=== PATIENT | female | born 1980 | race Caucasian/White ===

== ENCOUNTER 2018-08-25 17:52 | Emergency (ER) | payer BC, OTHER ==
--- NOTE | 2018-08-25 18:30 | Emergency Department Record ---
History of Present Illness - General Chief Complaint: Chest Pain Stated Complaint: CHEST PAIN Time Seen by Provider: 08/25/18 18:24 Source: Patient Mode of Arrival: Wheelchair - History of Present Illness Initial Comments: chest pain at 3:30 pm today and it was epigastric pain and moved into her chest she took tums and pepcid and given 325 mg of aspirin at urgent [facility] and sent to our ED. Currently pain is mostly gone. She was diaphorectic and pain is located under her breast. Father had an [place] in his 40's. Onset/Timin -: Hour(s) Onset: During rest Pain Location: Substernal Pain Radiation: Back Severity scale (1-10): 5 Quality: Aching, Tightness Consistency: Constant Improves With: Nothing Worsens With: Nothing Anginal Symptoms: Nausea Treatments Prior to Arrival: Aspirin - Related Data Home Medications Medication Instructions Recorded Confirmed Last Taken Calcium Carbonate/Vitamin D3 1 tab PO DAILY 08/25/18 08/25/18 Unknown [Calcium 600-Vit D3 400 Tablet] Lactobacillus Combination No.4 1 each PO DAILY 08/25/18 08/25/18 Unknown [Probiotic] Irdnjqto07/Iron Fum/FA/Om3/Dha 1 tab PO DAILY 08/25/18 08/25/18 Unknown [ Plus-Dha Combo Pack] Previous Rx's Medication Instructions Recorded Omeprazole [Prilosec] 20 mg PO DAILY #30 08/25/18 Allergies Allergy/AdvReac Type Severity Reaction Status Date / Time No Known Drug Allergies Allergy Verified 08/25/18 18:02 Travel Screening - Travel/Exposure Within Last 30 Days Have you traveled within the last 30 days?: No Review of Systems Reviewed: No additional complaints except as noted below Constitutional: Reports: As per HPI. Denies: Chills, Fever, Malaise, Night sweats, Weakness, Weight change Eyes: Reports: As per HPI. Denies: Eye discharge, Eye pain, Photophobia, Vision change ENT: Reports: As per HPI. Denies: Congestion, Dental pain, Ear pain, Epistaxis , Hearing loss, Throat pain Respiratory: Reports: As per HPI. Denies: Cough, Dyspnea, Hemoptysis, Stridor, Wheezes Cardiovascular: Reports: As per HPI, Chest pain (reproducible chest pain with palpation of the chest anteriorly and under her breast). Denies: Arrhythmia, Dyspnea on exertion, Edema, Murmurs, Orthopnea, Palpitations, Paroxysmal nocturnal dyspnea, Rheumatic Fever, Syncope Endocrine: Reports: As per HPI. Denies: Fatigue, Heat or cold intolerance, Polydipsia, Polyuria Gastrointestinal: Reports: As per HPI. Denies: Abdominal pain, Constipation, Diarrhea, Hematemesis, Hematochezia, Melena, Nausea, Vomiting Genitourinary: Reports: As per HPI. Denies: Abnormal menses, Discharge, Dyspareunia, Dysuria, Frequency, Hematuria, Incontinence, Retention, Urgency Musculoskeletal: Reports: As per HPI. Denies: Arthralgia, Back pain, Gout, Joint swelling, Myalgia, Neck pain Skin: Reports: As per HPI. Denies: Bruising, Change in color, Change in hair/ nails, Lesions, Pruritus, Rash Neurological: Reports: As per HPI. Denies: Abnormal gait, Confusion, Headache, Numbness, Paresthesias, Seizure, Tingling, Tremors, Vertigo, Weakness Psychiatric: Reports: As per HPI. Denies: Anxiety, Auditory hallucinations, Depression, Homicidal thoughts, Suicidal thoughts, Visual hallucinations Hematological/Lymphatic: Reports: As per HPI. Denies: Anemia, Blood Clots, Easy bleeding, Easy bruising, Swollen glands Past Medical History - SOCIAL HISTORY Smoking Status: Never smoker Alcohol Use: Rare Drug Use: None - RESPIRATORY Hx Respiratory Disorders: Yes Hx Asthma: Yes - CARDIOVASCULAR Hx Cardio Disorders: No - NEURO Hx Neuro Disorders: Yes Hx Headaches: Yes - GI Hx GI Disorders: Yes Hx Reflux: Yes - Hx Genitourinary Disorders: No - ENDOCRINE Hx Endocrine Disorders: Yes Hx Thyroid Disease: Yes - MUSCULOSKELETAL Hx Musculoskeletal Disorders: No - PSYCH Hx Psych Problems: Yes Hx Anxiety: Yes Hx Depression: Yes - HEMATOLOGY/ONCOLOGY Hx Hematology/Oncology Disorders: No Family Medical History Any Significant Family History?: Yes Hx Heart Disease: Father *Heart Comment: heart attack x3 Physical Exam - General General Appearance: Alert, Oriented x3, Cooperative, No acute distress - Head Head exam: Normal inspection - Eye Eye exam: Normal appearance, PERRL Pupils: Normal accommodation - ENT ENT exam: Normal exam, Mucous membranes moist, Normal external ear exam, Normal orophraynx, TM's normal bilaterally Ear exam: Normal external inspection. negative: External canal tenderness Nasal Exam: Normal inspection. negative: Discharge, Sinus tenderness Mouth exam: Normal external inspection, Tongue normal Teeth exam: Normal inspection. negative: Dental caries Throat exam: Normal inspection. negative: Tonsillar erythema, Tonsillar exudate - Neck Neck exam: Normal inspection, Full ROM. negative: Tenderness - Respiratory Respiratory exam: Normal lung sounds bilaterally. negative: Respiratory distress - Cardiovascular Cardiovascular Exam: Regular rate, Normal rhythm, Normal heart sounds - GI/Abdominal GI/Abdominal exam: Soft, Normal bowel sounds, Tenderness (epigastric and under ribs and reproducible with palpation) - Rectal Rectal exam: Deferred - exam: Deferred - Extremities Extremities exam: Normal inspection, Full ROM, Normal capillary refill. negative: Tenderness - Back Back exam: Reports: Normal inspection, Full ROM. Denies: Muscle spasm, Rash noted, Tenderness - Neurological Neurological exam: Alert, Normal gait, Oriented X3, Reflexes normal - Psychiatric Psychiatric exam: Normal affect, Normal mood - Skin Skin exam: Dry, Intact, Normal color, Warm Course - Reevaluation(s) Reevaluation #1: mylanta help her pain 08/25/18 19:24 Reevaluation #2: patient has an appointment to see her Dr tomorrow so I told her to have her Dr order an US to see if she has gall stones we don't have US at night 08/25/18 19:58 Medical Decision Making - Data Complexity MDM Data: Labs Ordered and/or Reviewed (trop T negative, liver enzymes elevated) , X-Ray Ordered and/or Reviewed (chest xray neg ) - Lab Data Result diagrams: 08/25/18 18:10 08/25/18 18:10 Disposition Clinical Impression: Biliary colic, Elevated liver enzymes Gastritis Qualifiers: Gastritis type: unspecified gastritis Chronicity: acute Gastritis bleeding: without bleeding Qualified Code(s): K29.00 - Acute gastritis without bleeding Disposition: Home, Self-Care Condition: (1) Good Instructions: Gastritis (ED) Additional Instructions: follow up with family Dr in 1 day she has an appointment tomorrow with the family Dr. return to Ed if worse mylanta 30 ml after meals and bedtime Prescriptions: Omeprazole [Prilosec] 20 mg PO DAILY #30 cap.dr Forms: Patient Portal Access Time of Disposition: 19:28 Quality - Quality Measures Quality Measures: N/A - Blood Pressure Screening Does Patient Have Any of the Following: No Blood Pressure Classification: Pre-Hypertensive BP Reading Systolic Measurement: 132 Diastolic Measurement: 75 Screening for High Blood Pressure: < Pre-Hypertensive BP, F/U Documented > [ G8950] Pre-Hypertensive Follow-up Interventions: Referral to alternative/primary care provider. (d)
[2018-08-25] MEDS ORDERED: AL HYDROX/MAG HYDROX 30ML UD PO ONE (18:36)
[2018-08-25 18:43] LABS: HEMOGLOBIN 12.5 gm/dl (11.6-16.0); MEAN CELL VOLUME 94.4 fl (81-97); MEAN CORPUSCULAR HEMOGLOBIN 31.9 pg (27-33); MEAN CORPUSCULAR HGB CONC 33.8 g/dl (32-36); MEAN PLATELET VOLUME 9.7 fl (7.4-10.4); PLATELET COUNT 306 K/uL (130-400); RED BLOOD COUNT 3.92 M/uL (3.80-5.40); RED CELL DISTRIBUTION WIDTH 13.4 % (11.5-14.5); WHITE BLOOD COUNT W/O DIFF 12.2 K/uL (4.2-12.2)
[2018-08-25 19:00] LABS: BLOOD UREA NITROGEN 11 mg/dL (6-20); CREATININE 0.5 mg/dL (0.5-0.9); EST GLOMERULAR FILTRATION RATE > 60 mL/min
[2018-08-25 19:03] LABS: GLUCOSE,RANDOM 118 mg/dL (74-109)
[2018-08-25 19:25] LABS: BILIRUBIN,TOTAL 0.7 mg/dL (0.2-1.0)
[2018-08-25 19:26] LABS: TOTAL PROTEIN 7.7 g/dL (6.6-8.7)
[2018-08-25 19:31] LABS: ALBUMIN 4.2 g/dL (4.0-5.0); BILIRUBIN,DIRECT 0.3 mg/dL (0-0.3)
[2018-08-25] MEDS ORDERED: HYDROCODONE/APAP 5/325MG TABLET PO ONE (19:59)
== END 2018-08-25 20:19 | disposition home or self-care (01) ==
LOC: ER 17:52
DX: K80.50 Calculus of bile duct without cholangitis or cholecystitis without obstruction (principal); K29.00 Acute gastritis without bleeding; R94.5 Abnormal results of liver function studies; R11.0 Nausea
CPT/HCPCS: 71046; 80048; 80076; 83690; 84484; 85027; 85730; 93005; 93010; 99284

== ENCOUNTER 2019-03-25 08:52 | Emergency (ER) | payer OTHER ==
--- NOTE | 2019-03-25 09:22 | Emergency Department Record ---
Anxiety - General Chief Complaint: Anxiety Stated Complaint: ANXIETY Time Seen by Provider: 03/25/19 09:00 Source: Patient Mode of Arrival: Ambulatory Limitations: No limitations - History of Present Illness Initial Comments: The patient is here due to a 24 hour hx of having a funny feeling in her chest. She denies pain or pressure but just is feeling a "funny feeling" off and on for the last day or so. The symptoms last 25-20 minutes at a time and then are gone for 30-45 minutes. She denies any pain, SOB, MARIUSZ, sweating or nausea. The patient has no hx of the symptoms being related to exertion and no hx of CP with exertion. She states she has an issue with anxiety which has been worse lately and the symptoms are making her very worried. The patient's only risk factor is her father having an [place] in his 40's. MD Complaint: Anxiety Onset/Timin -: Days(s) Symptoms: Other Place: Home Previous History of Same: No Provoking factors: None known Improves With: Nothing Worsens With: Nothing Associated symptoms: Denies other symptoms - Related Data Home Medications: Home Medications Medication Instructions Recorded Confirmed Last Taken Famotidine [Pepcid] 20 mg PO DAILY 03/25/19 03/25/19 03/25/19 Previous Rx's Medication Instructions Recorded Omeprazole [Prilosec] 20 mg PO DAILY #30 08/25/18 Allergies/Adverse Reactions: Allergies Allergy/AdvReac Type Severity Reaction Status Date / Time No Known Drug Allergies Allergy Verified 03/25/19 09:05 Travel Screening - Travel/Exposure Within Last 30 Days Have you traveled within the last 30 days?: No - Travel/Exposure Within Last Year Have you traveled outside the [place] in the last year?: No - Additonal Travel Details Have you been exposed to anyone with a communicable illness?: No - Travel Symptoms Symptom Screening: None Review of Systems Constitutional: Denies: Chills, Fever Eyes: Denies: Eye discharge ENT: Denies: Congestion Respiratory: Denies: Cough, Dyspnea Cardiovascular: Denies: Arrhythmia, Chest pain, Dyspnea on exertion Endocrine: Denies: Fatigue Gastrointestinal: Denies: Diarrhea Genitourinary: Denies: Dysuria Musculoskeletal: Denies: Arthralgia Skin: Denies: Bruising Past Medical History - SOCIAL HISTORY Smoking Status: Never smoker Alcohol Use: Rare Drug Use: None - RESPIRATORY Hx Respiratory Disorders: Yes Hx Asthma: Yes - CARDIOVASCULAR Hx Cardio Disorders: No - NEURO Hx Neuro Disorders: Yes Hx Headaches: Yes - GI Hx GI Disorders: Yes Hx Reflux: Yes - Hx Genitourinary Disorders: No - ENDOCRINE Hx Endocrine Disorders: Yes Hx Thyroid Disease: Yes - MUSCULOSKELETAL Hx Musculoskeletal Disorders: No - PSYCH Hx Psych Problems: Yes Hx Anxiety: Yes Hx Depression: Yes - HEMATOLOGY/ONCOLOGY Hx Hematology/Oncology Disorders: No Family Medical History Any Significant Family History?: Yes Hx Heart Disease: Father *Heart Comment: heart attack x3 Physical Exam - General General Appearance: Alert, Oriented x3, Cooperative, No acute distress - Head Head exam: Atraumatic, Normocephalic, Normal inspection - Eye Eye exam: Normal appearance, PERRL - ENT Throat exam: Normal inspection. negative: Tonsillar erythema, Tonsillar exudate - Neck Neck exam: Normal inspection, Full ROM. negative: Tenderness - Respiratory Respiratory exam: Normal lung sounds bilaterally. negative: Respiratory distress - Cardiovascular Cardiovascular Exam: Regular rate, Normal rhythm, Normal heart sounds. negative: Diastolic murmur, Systolic murmur - GI/Abdominal GI/Abdominal exam: Soft, Normal bowel sounds. negative: Tenderness - Extremities Extremities exam: Normal inspection, Full ROM, Normal capillary refill. negative: Tenderness - Neurological Neurological exam: Alert, Normal gait. negative: Abnormal gait, Motor sensory deficit - Psychiatric Psychiatric exam: negative: Anxious Course Vital Signs 03/25/19 09:06 Temperature 98.7 F Pulse Rate 90 Respiratory 18 Rate Blood Pressure 116/77 Pulse Ox 97 - Reevaluation(s) Reevaluation #1: The patient is doing well at this time. I did offer her some medicine for the funny chest feeling but she states it is gone at this time and she is resting comfortably. 03/25/19 09:27 Reevaluation #2: The patient is resting comfortably with no pain or any issues. I did discuss the normal workup including EKG, Trop and CXR. Given the fact she has a HEART Score of 1 I do believe she is stable for discharge. She does have an appointment with her PCP for Thursday. 03/25/19 10:07 Reevaluation #3: I did offer to refer the patient to Cardiology for piece of mind relating to her heart but she elected to discuss options with her PCP on Thursday. 03/25/19 10:13 Medical Decision Making - Data Complexity MDM Data: Labs Ordered and/or Reviewed, X-Ray Ordered and/or Reviewed, EKG Ordered and/or Reviewed - Lab Data Result diagrams: 03/25/19 09:25 03/25/19 09:25 - EKG Data -: EKG Interpreted by Me EKG: No Acute Changes, Normal EKG - Radiology Data Radiology results: Report reviewed (CXR: Neg) Disposition Disposition: Discharge Clinical Impression: Anxiety Disposition: Home, Self-Care Condition: (2) Stable Instructions: Social Anxiety Disorder (ED) Additional Instructions: Please continue your regular medicines and please see your doctor on Thursday as planned. Return to the ER for any worsening or new symptoms. Forms: Patient Portal Access Time of Disposition: 10:09 Quality - Quality Measures Quality Measures: N/A - Blood Pressure Screening View Details: Yes Does Patient Have Any of the Following: No Blood Pressure Classification: Normal BP Reading Systolic Measurement: 116 Diastolic Measurement: 77 Screening for High Blood Pressure: < Normal BP, F/U Not Required > [G8783]
[2019-03-25 09:31] LABS: ABSOLUTE NEUTROPHIL COUNT 6.58; BASO % 0.2 % (0-6); EOS % 0.1 % (0-6); GRAN % 79.4 % (47-80); HEMATOCRIT 37.4 % (35.0-47.0); HEMOGLOBIN 12.1 gm/dl (11.6-16.0); LYMPH % 16.6 % (16-45); MEAN CELL VOLUME 95.9 fl (81-97); MEAN CORPUSCULAR HGB CONC 32.4 g/dl (32-36); MONO % 3.7 % (0-9); PLATELET COUNT 299 K/uL (130-400); RED CELL DISTRIBUTION WIDTH 13.1 % (11.5-14.5); WHITE BLOOD COUNT W/O DIFF 8.3 K/uL (4.2-12.2)
[2019-03-25 09:42] LABS: BLOOD UREA NITROGEN 10 mg/dL (6-20); CREATININE 0.5 mg/dL (0.5-0.9); EST GLOMERULAR FILTRATION RATE > 60 mL/min; TOTAL PROTEIN 7.4 g/dL (6.6-8.7)
[2019-03-25 09:44] LABS: GLUCOSE,RANDOM 132 mg/dL (74-109)
[2019-03-25 09:47] LABS: ALB/GLOB RATIO 1.5 (1.1-1.8); ALBUMIN 4.4 g/dL (4.0-5.0); ALKALINE PHOSPHATASE 67 U/L (35-104); ALT/SGPT 32 U/L (<33); AST/SGOT 25 U/L (10.0-35.0)
[2019-03-25 09:57] LABS: THYROID STIMULATING HORMONE 2.03 uIU/mL (0.270-4.20)
--- NOTE | 2019-03-26 10:53 | RADIOLOGY REPORT ---
EXAM: CHEST 2 VIEWS HISTORY: FLUTTERING IN CHEST. FAMILY HISTORY OF CARDIAC DISEASE. TECHNIQUE: Upright PA and lateral views of the chest. COMPARISON: Two-view chest radiographic examination dated 08/25/2018. FINDINGS: The cardiomediastinal silhouette is normal in size and configuration. The pulmonary vasculature is nondilated. The lungs are symmetrically inflated. The lungs and pleural spaces are clear. Mild marginal endplate spurring is scattered throughout the thoracic spine. IMPRESSION: NO RADIOGRAPHIC EVIDENCE OF ACUTE CARDIOPULMONARY DISEASE. JOB NUMBER: [id number] [facility]
== END 2019-03-25 10:17 | disposition home or self-care (01) ==
LOC: ER 08:52
DX: F41.9 Anxiety disorder, unspecified (principal); R07.89 Other chest pain; R42 Dizziness and giddiness
CPT/HCPCS: 71046; 80053; 84443; 84484; 84703; 85025; 93005; 93010; 99284